=== PATIENT | female | born 1995 | race Hispanic/Latino ===

== ENCOUNTER 2020-04-24 22:26 | Inpatient (IN) | payer MEDICAID ==
[~2020-04-24] VITALS: Ht 152.4 cm; Wt 88.5 kg
[2020-04-24 23:07] LABS: APPEARANCE,URINE Cloudy (CLEAR); BILIRUBIN,URINE Negative (NEGATIVE); COLOR,URINE Yellow (YELLOW); GLUCOSE, URINE (UA) Negative (NEGATIVE); KETONES,URINE Negative (NEGATIVE); LEUKOCYTE ESTERASE ,URINE Small (NEGATIVE); NITRATE,URINE Negative (NEGATIVE); OCCULT BLOOD,URINE Nonhemolyzed Trace (NEGATIVE); PH,URINE 5.5 (5.0-8.0); PROTEIN,URINE Negative (NEGATIVE)
[2020-04-24 23:19] LABS: BACTERIA,URINE Rare /HPF (None Seen); MUCUS,URINE Few LPF (None Seen); RBC,URINE 0-1 /HPF (0-1); SQUAMOUS EPITHELIAL CELL,UR Moderate /HPF (0-2)
[2020-04-24] MEDS ORDERED: LACTATED RINGERS 1000ML 1,000 ML IV PRN (23:55)
[2020-04-25] MEDS ORDERED: AMPICILLIN 2GM+NS 100ML 100 ML IV SCH
[2020-04-25 00:28] LABS: HEMATOCRIT 31.7 % (36-48); MEAN CORPUSCULAR HEMOGLOBIN 27.3 pg (27.0-33.0); MEAN CORPUSCULAR HGB CONC 33.1 g/dL (32.0-36.0); MEAN CORPUSCULAR VOLUME 82.3 fL (79-99); RED BLOOD CELL COUNT(AUTO) 3.85 MIL/uL (4.00-5.50); RED CELL DISTRIBUTION WIDTH 13.2 % (11.0-15.5); WHITE BLOOD COUNT (AUTO) 14.4 K/uL (4.8-10.8)
[2020-04-25] MEDS ORDERED: MEPERIDINE-PF 50 MG/ML SYG ONE (04:27)
[2020-04-25] MEDS ORDERED: PROMETHAZINE HCL 25 MG/ML 1ML AMPULE IM PRN (04:30)
[2020-04-25] MEDS ORDERED: MEPERIDINE-PF 50 MG/ML SYG IVP PRN (04:30)
[2020-04-25] MEDS: AMPICILLIN 1GM+NS 50ML 50 ML IV SCH ×2 (04:33→08:20)
[2020-04-25] MEDS ORDERED: OXYTOCIN 10 USP UNITS/ML 20 UNIT in LACTATED RINGERS 1000ML 1,000 ML IV SCH (06:00)
[2020-04-25] MEDS ORDERED: OXYTOCIN-LR 20 UNITS/1000 ML 1,000 ML IV ONE (06:06)
[2020-04-25] MEDS ORDERED: EPHEDRINE SULFATE 50 MG/ML AMPULE IVP PRN (06:30)
[2020-04-25] MEDS ORDERED: ROPIVACAINE 0.2% 100ML VIAL 100 ML EP PRN (06:30)
[2020-04-25] MEDS ORDERED: LACTATED RINGERS 500 ML 500 ML IV PRN (06:30)
[2020-04-25] MEDS ORDERED: NALOXONE HCL 0.4 MG/1 ML ML IV PRN (06:30)
[2020-04-25] MEDS ORDERED: FENTANYL CITRATE PF 50 MCG/1 ML 2ML VIAL ONE (07:07)
[2020-04-25] MEDS ORDERED: DIPH,PERTUSS(ACELL),TET VAC/PF 0.5 ML VIAL IM PRN (09:15)
[2020-04-25] MEDS ORDERED: WITCH HAZEL 1 PAD TP PRN (09:15)
[2020-04-25] MEDS ORDERED: ACETAMINOPHEN 325 MG TAB PO PRN (09:15)
[2020-04-25] MEDS ORDERED: ACETAMINOPHEN-CODEINE 300/30MG TAB PO PRN (09:15)
[2020-04-25] MEDS ORDERED: OXYTOCIN-LR 20 UNITS/1000 ML 1,000 ML IV SCH (09:15)
[2020-04-25] MEDS ORDERED: MEASLES/MUMPS/RUBELLA VACCINE, LIVE 0.5 ML/VIAL SQ PRN (09:15)
[2020-04-25] MEDS ORDERED: BENZOCAINE/LANOLIN/ALOE VERA 60 ML AEROSOL TP PRN (09:15)
[2020-04-25] MEDS ORDERED: LANOLIN 30GM OINTMENT TP PRN (09:15)
[2020-04-25 11:04] VITALS: BP 113/64
[2020-04-25] MEDS ORDERED: PREN1TAB80 PO (11:11)
[2020-04-25 11:30] LABS: RAPID PLASMA REAGIN NONREACTIVE (NONREACTIVE)
[2020-04-25 16:33] VITALS: BP 114/64
[2020-04-25] MEDS: IBUPROFEN 600 MG TABLET PO PRN (16:35)
[2020-04-25 18:59] VITALS: BP 112/71
[2020-04-25] MEDS: DOCUSATE SODIUM 100 MG CAP PO SCH (21:03)
[2020-04-25 23:31] VITALS: BP 111/69
[2020-04-26 03:56] VITALS: BP 94/50
[2020-04-26] MEDS: AMPICILLIN 1GM+NS 50ML 50 ML IV SCH (04:00)
[2020-04-26 08:00] VITALS: BP 116/72
[2020-04-26] MEDS: DOCUSATE SODIUM 100 MG CAP PO SCH (08:25)
[2020-04-26] MEDS: IBUPROFEN 600 MG TABLET PO PRN (08:26)
[2020-04-26 09:13] LABS: HEPATITIS Bs ANTIGEN SCREEN P Negative (Negative)
--- NOTE | 2020-04-26 10:00 | NUR ---
TELEPHONE ORDER OBTAIN FROM DR. BEAR FOR DISCHARGE. STATUS UPDATE GIVEN AT THIS TIME. PATIENT INDICATED NOT WANTING MMR VACCINE AND SIGNED REFUSAL FORM.
[2020-04-26 12:00] VITALS: BP 123/83
--- NOTE | 2020-04-26 12:00 | NUR ---
DISCHARGE INSTRUCTIONS GIVEN AND VERBALIZED UNDERSTANDING INSTRUCTIONS. INSTRUCTED PATIENT TO TAKE MOTRIN OVER THE COUNTER FOR UTERINE CRAMPING AND GENERALIZED PAIN. VERBALIZED UNDERSTANDING.
--- NOTE | 2020-04-26 12:15 | NUR ---
PATIENT WAS TAKEN VIA W/C TO FAMILY VEHICLE AND WAS DISCHARGED TO HER SIGNIFICANT OTHER ION STABLE CONDITION. PATIENT DENIES PAIN AND TOLERATING ACTIVITY VERY WELL. DENIES ANY DIZZINESS ON AMBULATION.
== END 2020-04-26 12:15 | disposition home or self-care (01) | DRG 560 ==
LOC: LDH 22:26 → OBSVTOIN 22:26 → WSH 04-25 11:00
PROVIDERS: ADMIT Obstetrics & Gynecology; ATTEND Obstetrics & Gynecology
PROC: 10E0XZZ Delivery of Products of Conception, External Approach (ICD-10-PCS; principal; 2020-04-25)
PROC: 3E0234Z Introduction of Serum, Toxoid and Vaccine into Muscle, Percutaneous Approach (ICD-10-PCS; 2020-04-25)
DX: O69.81X0 Labor and delivery complicated by cord around neck, without compression, not applicable or unspecified (principal); O99.824 Streptococcus B carrier state complicating childbirth; Z3A.39 39 weeks gestation of pregnancy; Z37.0 Single live birth; Z23 Encounter for immunization
CPT/HCPCS: 36415; 81001; 85027; 86592; 86701; 86850; 86900; 86901; 87340; 87390; A4314; G0378; J0290; J2175; J2590; J3010; J7120